=== PATIENT | female | born 1940 | race Caucasian/White ===

== ENCOUNTER 2017-02-23 21:17 | Emergency (ER) | payer MEDICARE, BC ==
--- NOTE | ~2017-02-23 | ER ---
PATIENT'S NAME: Daisy HENDRICKSON [facility] AGE: 76 Y [address] ROOM: [place] [address] LOCATION: [facility] ADMIT DATE: 02/23/2017 ER/Outpatient Report DISCHARGE DATE: 02/23/2017 FAMILY PHYSICIAN: Suraj Dumont MD ATTENDING PHYSICIAN: Berto Guzmán TIME OF ARRIVAL: 2124. TIME OF EXAM: 2124. CHIEF COMPLAINT: Fall. HISTORY OF PRESENT ILLNESS: The patient states approximately 20 minutes prior to arrival, she misstepped, tripped over a chair, ended up falling, received a laceration to the right eyebrow area. She has some swelling and discomfort of the right cheek. Denies having any loss of consciousness. She has not been nauseated. No vomiting. Denies any vision changes. She states she fell a couple of days ago also and received an abrasion to the right upper forehead area. She has some bruising from that. ALLERGIES: CODEINE AND PENICILLIN. CURRENT MEDICATIONS: On her chart and reviewed by me. PAST MEDICAL HISTORY: On her chart and reviewed by me. PAST SURGICAL HISTORY: Listed. SOCIAL HISTORY: She lives in [place] with her . [facility] She sees Dr. Dumont. Denies use of drugs, alcohol, or tobacco. REVIEW OF SYSTEMS: All negative other than those mentioned in the HPI. She states her last tetanus shot was 2 years ago. PHYSICAL EXAMINATION: PATIENT'S NAME: Daisy HENDRICKSON [facility] AGE: 76 Y [address] ROOM: [place] [address] LOCATION: [facility] ADMIT DATE: 02/23/2017 ER/Outpatient Report DISCHARGE DATE: 02/23/2017 FAMILY PHYSICIAN: Suraj Dumont MD ATTENDING PHYSICIAN: Berto Guzmán VITAL SIGNS: She weighs 76.9 kg, blood pressure is 199/89, pulse is 67, respirations 16, temperature of 98.9, and O2 saturation is 96% on room air. GENERAL: She is awake, alert, and oriented x4. Her skin is pink, warm, and dry. Respirations are even and nonlabored. HEENT: Pupils are pinpoint. Extraocular movement is intact. Oropharynx is clear. NECK: Supple. No lymphadenopathy. LUNGS: Lung sounds are clear throughout. HEART: Regular rate and rhythm. DIAGNOSTIC DATA: CT scan of the head was completed. Radiologist reports no acute intracranial process. Lacerated area was approximately 3 cm in length. It was cleansed with saline, anesthetized with 1% lidocaine with epinephrine, cleansed well with saline and Betadine, closed with 5-0 Ethilon x6 stitches. The patient tolerated the procedure well. States she has a headache. Boyce 5/325 x1 tablet was given. IMPRESSION: Right eyebrow laceration, simple closure. PLAN: Home, rest. Keep the area clean and dry. If her headache persists for the next 1 to 2 days, she is to follow up with Dr. Dumont. She states she has an appointment to see him on the , encouraged her to keep that appointment for suture removal. Her and her verbalized understanding. ALEKSANDAR HESS APRN FOR MD JULIEN RUTH/danelle /[id number] d: 02/24/173 t: 02/28/17 1319, OUTPATIENT REPORT
[~2017-02-23 21:17] MED LIST: BLACK COHOSH40 MG PO; EQ GLUCOSAMINE1 EACH PO; HYDROCODON-ACE1 EAC2 PO; HYGROTON25 MG PO; LOTENSIN40 MG PO; MS CONTIN30 MG PO; MULTIVITAMINS1 EAC1 PO; SUPER B-50 COM1 EACH PO; ZOCOR20 MG PO; ZOLOFT50 MG PO
== END 2017-02-23 22:24 | disposition disaster alternative care site (69) ==
LOC: GACC 21:17
PROC: 0HQ1XZZ Repair Face Skin, External Approach (ICD-10-PCS; principal; 2017-02-23)
DX: S01.111A Laceration without foreign body of right eyelid and periocular area, initial encounter (principal); Z88.5 Allergy status to narcotic agent; Z88.0 Allergy status to penicillin; Z96.641 Presence of right artificial hip joint; Z98.890 Other specified postprocedural states; W01.0XXA Fall on same level from slipping, tripping and stumbling without subsequent striking against object, initial encounter